=== PATIENT | male | born 1935 | race Caucasian/White ===

== ENCOUNTER 2017-06-01 09:07 | Outpatient (CLI) | payer MEDICARE, BC ==
[~2017-06-01] VITALS: Ht 185.4 cm; Wt 76.4 kg
--- NOTE | ~2017-06-01 | OP ---
PATIENT NAME: ANA BATRES MEDICAL RECORD: [id number] :33 LOCATION:D.CAT ADMISSION DATE: SURGEON: LAURA FLANAGAN MD DATE OF OPERATION: 06/01/2017 PROCEDURES: 1. PTCA stent left circumflex. 2. Intravascular ultrasound left circumflex. 3. Left heart catheterization. 4. Selective coronary angiography. 5. Vein graft angiography. 6. CAO angiography. 7. Left ventriculogram. INDICATION: Angina and coronary artery disease. PROCEDURE IN DETAIL: After informed consent was obtained and after detailed explanation of risks, benefits as well as alternative therapies, the patient elected to proceed with angiogram and angioplasty. The right femoral area was prepped and draped in normal sterile fashion. The right femoral artery was cannulated via modified Seldinger technique with placement of 6-Telugu sheath. All catheters exchanged through this sheath. FINDINGS: Left ventriculogram was performed in standard 30-degree DE LA FUENTE view reveals global hypokinesis throughout all segments. Overall ejection fraction is 30% to 35%. SELECTIVE CORONARY ANGIOGRAPHY: 1. Left main showed no significant angiographic disease. 2. Left anterior descending is totally occluded. 3. Left circumflex has a 73% stenosis in the mid vessel confirmed by intravascular ultrasound. 4. Right coronary has at least 80% stenosis in the mid vessel. 5. CAO to the LAD is widely patent. Distal LAD is diffusely diseased. 6. Vein graft to the circumflex is closed. 7. Vein graft to the right coronary is closed. PTCA STENT OF THE LEFT CIRCUMFLEX: The stent used was a 3.5 x 18 mm [place]. Result was 0% residual stenosis. OVERALL IMPRESSION: Successful percutaneous transluminal coronary angioplasty stent of the left circumflex going from 73% initial stenosis to 0% residual. PLAN: PTCA stent of the RCA in the near future. TRANSINT:[id number] Voice Confirmation ID: [id number] DOCUMENT ID: [id number] OPERATIVE REPORT [id number] MEDARDOANA HUNG LAURA DALE MD CC: [id number] DICTATION DATE: 06/01/17 1300 DRILL PRESS SET UP OPERATOR RADIAL: 06/01/17 1548 [facility] [address] [place] [address]
--- NOTE | ~2017-06-01 | HEMODYNAMI ---
PATIENT:Ursula BATRES MEDICAL RECORD: [id number] : 33 LOCATION:FUENTES ADMISSION DATE: 06/01/17 Generatedon:06/01/201712:59 Patient name: Ursula BATRES Patient #: [id number] SSN: : Date of study: 06/01/2017 Page: Of Hemodynamic Procedure Report Patient Data Patient Demographics Procedure consent was obtained First Name: Ursula Gender: Male Last Name: MEDARDO : 1935 [facility] Initial: ONEIL Age: 81 year(s) Patient #: [id number] Race: Unknown Additional ID: [id number] Contact details [address]: [address] [place] [address] State: [place] City: [place] Zip code: [address] Admission Admission Data Admission Date: 06/01/2017 Admission Time: 9:07 Lab Results Lab Result Date: 06/01/2017 Lab Result Time: 0:00 Biochemistry Name Units Result Min Max Creatinine mg/dl 1 --(--*-)-- 0.6 1.3 CBC Name Units Result Min Max Hemoglobin g/dl 14.1 --(*---)-- 13.5 17.5 Procedure Procedure Types Cath Procedure Diagnostic Procedure [facility] w/Coronaries FFR/IVUS Intra-Coronary IVUS Initial PCI Procedure Coronary Stent Initial Miscellaneous Procedures Moderate Sedation up to 30 minutes Procedure Description Procedure Date Procedure Date: 06/01/2017 Procedure Start Time: 12:38 Procedure End Time: 12:59 Procedure Staff Name Function Álvaro Ruby MD Performing Physician Otto Manning RT Scrub Trina Escoto RT Scrub Elle Velarde RN Nurse Estela Acosta RT Monitor Eddy Weaver RT Hydroelectric Plant Technician Procedure Data Cath Procedure Fluoroscopy Diagnostic fluoroscopy Total fluoroscopy Time: 7 time: 7 min min Diagnostic fluoroscopy Total fluoroscopy dose: 504 dose: 504 mGy mGy Contrast Material Contrast Material Type Amount (ml) Isovue 300 118 Entry Location Entry Primary Successful Side Size Upsize Upsize Entry Closure Succes sful Closure Location (Fr) 1 (Fr) 2 (Fr) Remarks Device Remarks Femoral Right 5 Fr 6 Fr Exoseal artery Short Estimated blood loss: 10 ml Diagnostic catheters Device Type Used For End Catheter Placement Cordis 5Fr Pigtail LV Angiography Catheter (MP) Cordis 5Fr JL 4.0 Left Coronary Catheter (MP) Angiography Diagnostic Infinity 5Fr Left Coronary JL 6 catheter Angiography Cordis 5Fr 3DRC Catheter Internal mammary (MP) arteriography Cordis 5Fr 3DRC Catheter Right Coronary (MP) Angiography Diagnostic Infinity 5Fr SVG Angiography AR 2 MOD catheter Procedure Complications No complications Procedure Medications Medication Administration Route Dosage Oxygen NC 2 l/min Lidocaine 2% added to field 20 Heparin Flush Bag added to field 2 bags (1000units/500ml NS) 0.9% NaCl I.V. 100 ml/hr Versed I.V. 1 mg Fentanyl I.V. 50 mcg Versed I.V. 1 mg Fentanyl I.V. 50 mcg Heparin Bolus I.V. 4000 units Integrilin (Bolus I.V. 6.8 ml 2mg/ml) Versed I.V. 0.5 mg Plavix P.O. 600 mg Hemodynamics Rest Heart Rate: 60 (bpm) Snapshots Pre Cath Intra NCS Post Cath Vital Signs Time Heart Resp SPO2 etCO2 WO3pvbp NIBP (mmHg) Rhythm Pain Sedation Rate (ipm) (%) (mmHg) (mmHg) Status Level (bpm) 12:30:53 67 15 100 0 0 157/77(127) NSR 0 (11) 10(A) , No pain 12:35:13 60 15 95 0 0 153/78(129) NSR 0 (11) 10(A) , No pain 12:40:14 60 14 98 0 0 153/79(123) NSR 0 (11) 10(A) , No pain 12:44:33 60 16 94 0 0 140/75(111) NSR 0 (11) 9(A) , No pain 12:48:46 60 15 94 0 0 148/73(118) NSR 0 (11) 9(A) , No pain 12:53:04 60 16 93 0 0 140/75(118) NSR 0 (11) 9(A) , No pain 12:57:18 60 14 99 0 0 153/75(125) NSR 0 (11) 10(A) , No pain Medications Time Medication Route Dose Verified Delivered Reason Notes Effectiveness by by 12:29:34 Oxygen NC 2 Álvaro Buffie used for l/min Flori Velarde RN procedure 12:30:08 Lidocaine 2% added 20ml Álvarorosie Rea for local to vial Flori Ruby MD anesthetic field 12:30:16 Heparin Flush added 2 Álvaro Álvaro used for Bag to bags Flori Ruby MD procedure (1000units/500ml field NS) 12:30:27 0.9% NaCl I.V. 100 Álvaro Buffie Per physician ml/hr Flori Velarde RN 12:38:00 Versed I.V. 1 mg Álvaro Almeida for sedation Flori Velarde RN 12:38:06 Fentanyl I.V. 50 Álvaro Buffie for sedation mcg Flori Velarde RN 12:41:25 Versed I.V. 1 mg Álvaro Almeida for sedation Flori Velarde RN 12:41:29 Fentanyl I.V. 50 Álvaro Almeida for sedation mcg Flori Velarde RN 12:47:26 Heparin Bolus I.V. 4000 Álvaro Clarkie for verifi ed units Flori Velarde RN anticoagulation with dr ruby 12:50:15 Integrilin I.V. 6.8 Álvaro Clarkie for wasted (Bolus 2mg/ml) ml Flori Velarde RN antiplatelet 3.2 ml therapy of vial 12:53:48 Versed I.V. 0.5 Álvaro Clarkie for sedation mg Flori Velarde RN 12:58:16 Plavix P.O. 600 Álvaro Almeida for mg Flori Velarde RN antiplatelet therapy Procedure Log Time Note 12:12:14 Eddy Weaver RT(R) sent for patient. Start room use. 12:12:15 Time tracking: Regular hours 12:12:19 Plan of Care:Hemodynamics will remain stable., Cardiac rhythm will remain stable., Comfort level will be maintained., Respiratory function will remain adequate., Patient/ family verbilizes understanding of procedure., Procedure tolerated without complication., Recovers from procedure without complications.. 12:14:34 Lab Result : Creatinine 1 mg/dl 12:14:34 Lab Result : Hemoglobin 14.1 g/dl 12:18:13 Patient received from Pre/Post Procedure Room to [facility] 1 Alert and oriented. Tansferred to table in Supine position. 12:18:14 Warm blankets applied, and ruby hugger turned on for patient comfort. 12:18:15 Correct patient and procedure confirmed by team. 12:18:16 Signed procedure consent form obtained from patient. 12:18:17 ECG and BP/O2 sat monitors applied to patient. 12:18:18 Full Disclosure recording started 12:29:34 Oxygen 2 l/min NC was administered by Elle Velarde RN; used for procedure; 12:29:35 Vital chart was started 12:30:08 Lidocaine 2% 20ml vial added to field was administered by Álvaro Ruby MD; for local anesthetic; 12:30:16 Heparin Flush Bag (1000units/500ml NS) 2 bags added to field was administered by Álvaro Ruby MD; used for procedure; 12:30:27 0.9% NaCl 100 ml/hr I.V. was administered by Elle Velarde RN; Per physician; 12:36:03 Baseline sample Acquired. 12:36:08 Rhythm: paced 12:36:17 H&P Date Dictated: 06/01/2017 Within 30 days and on chart., H&P Addendum completed by physician on day of procedure. (MUST COMPLETE FOR ALL OUTPATIENTS). 12:36:21 Pre-procedure instructions explained to patient. 12:36:21 Pre-op teaching completed and patient verbalized understanding. 12:36:23 Family in waiting room. 12:36:24 Patient NPO since Midnight. 12:36:29 Is the patient allergic to Iodine/contrast media? No. 12:36:30 Was the patient premedicated? No 12:36:35 Is patient on blood thinner?No 12:36:36 Patient diabetic? No. 12:36:39 Previous problem with sedation/anesthesia? No ? 12:36:41 Snore? Yes 12:36:43 Sleep apnea? No 12:36:44 Deviated septum? No 12:36:44 Opens mouth fully? Yes 12:36:45 Sticks out tongue? Yes 12:36:47 Airway obstruction? No ? 12:36:49 Dentures? No ? 12:36:53 Pre procedure: right dorsailis pedis pulse 1+ Palpable, but thready & weak; easily obliterated 12:36:56 Pre procedure: left dorsailis pedis pulse 1+ Palpable, but thready & weak; easily obliterated 12:37:01 Patient pain scale 0/10 ?. 12:37:06 IV patent on arrival in left forearm with 0.9% NaCl at [facility]. 12:37:09 Lab results completed and on chart. 12:37:18 Zero performed for pressure channel P1 12:37:29 Right groin area was prepped with chlora-prep and draped in sterile fashion 12:37:30 Alarms reviewed by R. N. 12:37:31 Sharps counted by scrub and verified by R.N. 12:37:34 Final Timeout: patient, procedure, and site verified with staff and physician. All members of the team are in agreement. 12:37:36 Right groin site verified by team. 12:37:42 Physical assessment completed. ASA score P 2 - A patient with mild systemic disease as per Álvaro Ruby MD. 12:37:46 Sedation plan: IV Moderate Sedation Versed, Fentanyl 12:37:51 Use device set Femoral Dx 12:37:52 Acist Syringe opened to sterile field. 12:37:54 Bag Decanter opened to sterile field. 12:37:54 Medline Cath Pack opened to sterile field. 12:37:55 Terumo 5Fr [place] Sheath opened to sterile field. 12:37:55 St Christiano 260cm J .035 wire opened to sterile field. 12:37:56 Acist Hand Control opened to sterile field. 12:37:57 Acist Manifold opened to sterile field. 12:37:57 Diagnostic Infinity 5Fr Multipack catheter opened to sterile field. 12:37:58 Tegaderm 4 x 4 opened to sterile field. 12:38:00 Versed 1 mg I.V. was administered by Elle Veladre RN; for sedation; 12:38:06 Fentanyl 50 mcg I.V. was administered by Elle Velarde RN; for sedation; 12:38:07 Procedure started. 12:38:11 Local anesthetic to right femoral artery with Lidocaine 2% by Álvaro Ruby MD.INITIAL ACCESS ONLY 12:38:19 A 5 Fr sheath was inserted into the Right Femoral artery 12:38:42 A Cordis 5Fr Pigtail Catheter (MP) was advanced over the wire and used for LV Angiography. 12:39:03 LV gram done using DE LA FUENTE 12:39:07 EF : 30 % 12:39:12 Injector settings: Ml/sec: 10, Volume: 20, 12:39:14 Catheter removed. 12:40:36 A Cordis 5Fr JL 4.0 Catheter (MP) was advanced over the wire and used for Left Coronary Angiography.removed, unable to cannulate. 12:40:57 A Diagnostic Infinity 5Fr JL 6 catheter was advanced over the wire and used for Left Coronary Angiography. 12:41:25 Versed 1 mg I.V. was administered by Elle Velarde RN; for sedation; 12:41:28 Catheter removed. 12:41:29 Fentanyl 50 mcg I.V. was administered by Elle Velarde RN; for sedation; 12:41:45 Terumo 6Fr [place] Sheath opened to sterile field. 12:41:46 Nicholas [place] Storkwitzisper J 300cm 0.014 guide wire opened to sterile field. 12:41:46 [employer] BasixCompak Inflation Kit opened to sterile field. 12:42:44 A Cordis 5Fr 3DRC Catheter (MP) was advanced over the wire and used for Internal mammary arteriography.TO LAD 12:43:49 A Cordis 5Fr 3DRC Catheter (MP) was advanced over the wire and used for Right Coronary Angiography. 12:43:56 Catheter removed. 12:46:03 A Diagnostic Infinity 5Fr AR 2 MOD catheter was advanced over the wire and used for SVG Angiography. 12:46:04 Catheter removed. 12:46:15 [place] Sci Mach 1 6Fr Q 5.0 guide catheter opened to sterile field. 12:47:02 [place] Minto Eagleye IVUS Catheter opened to sterile field. 12:47:23 Sheath upsized to a 6 Fr Short. 12:47:26 Heparin Bolus 4000 units I.V. was administered by Elle Velarde RN; for anticoagulation; verified with dr ruby 12:47:29 6 Fr Q5 guide catheter was inserted over the wire 12:47:48 Whisper wire advanced. 12:47:58 IVUS catheter advanced over wire. 12:50:08 IVUS pass to LAD lesion performed. 12:50:15 Integrilin (Bolus 2mg/ml) 6.8 ml I.V. was administered by Elle Velarde RN; for antiplatelet therapy; wasted 3.2 ml of vial 12:50:18 IVUS catheter removed over wire. 12:53:17 Inflation Number: 1 A [place] OTW 3.5 x 18 stent was prepped and advanced across the Mid CX. The stent was deployed at 13 DARLENE for 0:07 (min:sec). 12:53:33 Stent catheter was removed intact over wire. 12:53:33 Wire removed. 12:53:34 Guide catheter removed. 12:53:44 Cordis 6Fr Exoseal opened to sterile field. 12:53:48 Versed 0.5 mg I.V. was administered by Elle Velarde RN; for sedation; 12:53:52 Sheath removed intact; hemostasis achieved with Exoseal to the Right Femoral artery. 12:53:54 Procedure ended.(Physican Out) 12:54:36 Fluoroscopy time 07.00 minutes. 12:54:45 Fluoroscopy dose: 504 mGy 12:54:45 Flurop Dose total: 504 12:55:17 Contrast amount:Isovue 300 118ml. 12:55:18 Sharps counted by scrub and verified by R.N. 12:55:19 Insertion/operative site no bleeding no hematoma. 12:55:22 Post-op/insertion site Right Femoral artery dressed using a 4 x 4 and Tegaderm. 12:55:26 Post right femoral artery:stable, clean and dry 12:55:27 Post Procedure Pulses reassessed and unchanged 12:55:29 Post-procedure physical assessment completed. ASA score P 2 - A patient with mild systemic disease as per Álvaro Ruby MD. 12:55:31 Post procedure rhythm: unchanged. 12:55:34 Estimated blood loss: 10 ml 12:55:35 Post procedure instruction explained to patient.Patient verbalizes understanding. 12:55:36 Patient needs reinforcement of post procedure teaching. 12:55:52 Procedure type changed to Cath procedure, Diagnostic procedure, LHC, LHC w/Coronaries, FFR/IVUS, Intra-Coronary IVUS Initial, PCI procedure, Coronary Stent Initial, Miscellaneous Procedures, Moderate Sedation up to 30 minutes 12:55:57 Procedure Complication : No complications 12:55:59 See physician's report for complete and final results. 12:57:04 Procedure and supply charges have been captured, reviewed, submitted and are correct. 12:58:16 Plavix 600 mg P.O. was administered by Elle Velarde RN; for antiplatelet therapy; 12:58:51 Vital chart was stopped 12:58:55 Report given to Pre/Post Procedure Room. 12:58:58 Patient transfered to Pre/Post Procedure Room with Stretcher. 12:59:08 Procedure ended. 12:59:08 Full Disclosure recording stopped 12:59:11 End room use (Document Last) Intervention Summary Intervention Notes Time ActionType Lesion and Equipment Action# Pressure Duration Attributes Used 12:53:17 Place stent Mid CX [place] OTW 1 13 00:07 3.5 x 18 stent Device Usage Item Name Manufacture Quantity Catalog Number Hospital Part Current Mini mal Lot# / Charge Number Stock Stock Serial# Code Acist Acist 1 93847 947331 203886 139373 20 Syringe Medical Systems Inc Bag Microtek 1 2002S 408090 46344 970131 5 TRAFI. Medline Cardinal 1 [id number] 415645 28179 308381 5 Cath Pack Health Terumo 5Fr Terumo 1 TCL761 064065 248140 151913 [address] Christiano 1 923906 695850 701506 946439 30 260cm J .035 wire Acist Hand Acist 1 42101 767649 375210 504779 5 Control Medical Systems Inc Acist Acist 1 17057 533195 895272 160281 5 Social & Beyond Medical Systems Inc Diagnostic Cardinal 1 IX2125 400391 63492 632454 30 Infinity Health 5Fr Multipack catheter Tegaderm 4 3M 1 1626W 284338 320478 896578 5 x 4 Cordis 5Fr Cardinal 1 763233 5 Pigtail Health Catheter (MP) Cordis 5Fr Cardinal 1 971528 5 JL 4.0 Health Catheter (MP) Diagnostic Cardinal 1 201178Y 581338 104663 452741 5 Infinity Health 5Fr JL 6 catheter Terumo 6Fr Terumo 1 MTL442 699414 208989 563311 40 [place] Sheath Nicholas Nicholas 1 [id number] 506739 738132 492550 5 Whisper J Vascular 300cm 0.014 guide wire Merit Merit 1 AT5127 750363 631174 433028 15 Hangfeng [employer] Medical Inflation Kit Cordis 5Fr Cardinal 1 007611 5 3DRC Health Catheter (MP) Diagnostic Cardinal 1 206134Y 490574 792417 263718 20 Infinity Health 5Fr AR 2 MOD catheter [place] Sci [place] 1 [id number] 575805 401940 367560 0 Mach 1 6Fr Scientific Q 5.0 guide catheter [place] 1 08674H 073522 982713 650918 8 Minto Eagleye IVUS Catheter Tate OTW Medtronic 1 [id number] 827231 9798483 494886 5 [id number] 3.5 x 18 stent Cordis 6Fr Cardinal 1 EX600 907574 263183 503011 10 [facility] Health Signature Audit Howard Stage Time Signature Unsigned Intra-Procedure 06/01/2017 Estela 12:59:34 PM Counts RT(R) Signatures Monitor : Estela Signature : Counts RT Date : Time : [address] [place] [address]
[2017-06-01] MEDS ORDERED: CRESTOR20 MG PO (09:31)
[2017-06-01] MEDS ORDERED: ZYLOPRIM100 MG PO (09:32)
[2017-06-01] MEDS ORDERED: BETAPACE 80 MG80 MG PO (09:32)
[2017-06-01] MEDS ORDERED: BAYER CHEWABLE81 MG PO (09:32)
[2017-06-01 09:41] VITALS: BP 150/76; Ht 185.4 cm; Wt 76.4 kg
[2017-06-01 10:07] LABS: BASOPHILS 0.3 % (0-2); EOSINOPHILS 1.4 % (0-7); HEMATOCRIT 43.5 % (42.0-54.0); HEMOGLOBIN 14.1 g/dL (13.5-17.5); IMMATURE GRANULOCYTES 0.2 % (0-5); LYMPHOCYTES 23.4 % (15-50); MCHC 32.4 g/dL (31.0-37.0); MCV 98.9 fL (80.0-100.0); MEAN PLATELET VOLUME 9.7 fL (7.4-10.4); MONOCYTES 8.5 % (2-11); NEUTROPHILS 66.2 % (40-80); PLATELET COUNT 185 10x3/uL (130-400); RDW 15.2 % (11.5-14.5); WBC 6.3 10x3/uL (4.8-10.8)
[2017-06-01 10:17] LABS: CALC OSMOLALITY 284 mosm/kg (275-300); CALCIUM 8.5 mg/dL (8.5-10.1); CARBON DIOXIDE 29.1 mmol/L (21.0-32.0); CHLORIDE - SERUM 107 mmol/L (98-107); GLUCOSE 92 mg/dL (74-106); POTASSIUM - SERUM 4.2 mmol/L (3.5-5.1); SODIUM 142 mmol/L (136-145); UREA NITROGEN 18 mg/dL (7-18); eGFR NON AFRICAN AMERICAN 76 mL/min (90-120)
[2017-06-01] MEDS ORDERED: PLAVIX75 MG PO (13:29)
--- NOTE | 2017-06-01 13:34 | NUR ---
RIGHT GROIN CDI, NO HEMATOMA OR BLEEDING AT SITE, SOFT TO TOUCH, FAMILY AT SIDE
--- NOTE | 2017-06-01 14:00 | NUR ---
RESTING QUIETLY, RIGHT GROIN CDI, NO HEMATOMA OR BLEEDING AT SITE, SOFT TO TOUCH, AT SIDE
--- NOTE | 2017-06-01 17:00 | NUR ---
IV D'C WITH CATH TIP INTACT, WRITTEN AND VERBAL D'C INSTRUCTIONS GIVEN TO PT AND - VERBAL UNDERSTANDING NOTED. WILL RETURN ON FOR NEXT PROCEDURE. DENIES PAIN OR FURTHUR NEEDS. D'C HOME WITH
--- NOTE | 2017-06-01 17:01 | NUR ---
PLAVIX RX CALLED INTO [facility] BY TAYA-#90 WITH 3 REFILLS- SPOKE TO SULY-
== END 2017-06-01 17:05 | disposition home or self-care (01) ==
LOC: D.CATH 09:07
PROVIDERS: Internal Medicine Interventional Cardiology
DX: I25.10 Atherosclerotic heart disease of native coronary artery without angina pectoris (principal); I48.0 Paroxysmal atrial fibrillation; E78.5 Hyperlipidemia, unspecified; I49.5 Sick sinus syndrome; R06.02 Shortness of breath; Z95.0 Presence of cardiac pacemaker; Z01.812 Encounter for preprocedural laboratory examination
CPT/HCPCS: 93459; 92978; C9600

== ENCOUNTER 2017-06-05 08:59 | Outpatient (CLI) | payer MEDICARE, BC ==
[~2017-06-05] VITALS: Ht 185.4 cm; Wt 76.4 kg
--- NOTE | ~2017-06-05 | OP ---
PATIENT NAME: Ursula BATRES MEDICAL RECORD: [id number] :33 LOCATION:D.CAT ADMISSION DATE: SURGEON: LAURA FLANAGAN MD DATE OF OPERATION: 06/05/2017 PROCEDURES: 1. PTCA stent RCA. 2. Selective coronary angiography. INDICATION: Angina and coronary artery disease. PROCEDURE IN DETAIL: After informed consent was obtained and after detailed explanation of risks, benefits as well as alternative therapies, the patient elected to proceed with angiogram and angioplasty. The right femoral area was prepped and draped in normal sterile fashion. The right femoral artery was cannulated via modified Seldinger technique with placement of 6-Ukrainian sheath. All catheters exchanged through this sheath. FINDINGS: The right coronary artery has an area of 70-80% stenosis in the mid vessel. This was addressed with a 2.5 x 26 mm Resolute [place]. Result was 0% residual stenosis. OVERALL IMPRESSION: Successful percutaneous transluminal coronary angioplasty stent of the right coronary artery going from 80% initial stenosis to 0% residual stenosis. TRANSINT:[id number] Voice Confirmation ID: [id number] DOCUMENT ID: [id number] LAURA FLANAGAN MD CC: [id number] DICTATION DATE: 06/05/17 1119 EARRING MAKER: 06/05/17 1132 [facility] [address] [place] [address]
--- NOTE | ~2017-06-05 | HEMODYNAMI ---
PATIENT:Ursula BATRES MEDICAL RECORD: [id number] : 33 LOCATION:[facility] ADMISSION DATE: 06/05/17 Generatedon:06/05/201711:24 Patient name: Ursula BATRES Patient #: [id number] SSN: : Date of study: 06/05/2017 Page: Of Hemodynamic Procedure Report Patient Data Patient Demographics Procedure consent was obtained First Name: Ursula Gender: Male Last Name: MEDARDO : 1935 [facility] Initial: ONEIL Age: 81 year(s) Patient #: [id number] Race: Unknown Additional ID: [id number] Contact details [address]: [address] [place] [address] State: [place] City: [place] Zip code: [address] Admission Admission Data Admission Date: 06/05/2017 Admission Time: 8:59 Lab Results Lab Result Date: 06/01/2017 Lab Result Time: 0:00 Biochemistry Name Units Result Min Max Creatinine mg/dl 1 --(--*-)-- 0.6 1.3 CBC Name Units Result Min Max Hemoglobin g/dl 14.1 --(*---)-- 13.5 17.5 Procedure Procedure Types Cath Procedure Diagnostic Procedure [facility] PCI Procedure Coronary Stent Initial Miscellaneous Procedures Moderate Sedation up to 15 minutes Procedure Description Procedure Date Procedure Date: 06/05/2017 Procedure Start Time: 11:08 Procedure Staff Name Function Álvaro Ruby MD Performing Physician Carmen Graham RT Scrub Elle Velarde RN Nurse Osbaldo Zhu RT Monitor Procedure Data Cath Procedure Fluoroscopy Diagnostic fluoroscopy Total fluoroscopy Time: 2.5 time: 2.5 min min Diagnostic fluoroscopy Total fluoroscopy dose: dose: 73.19 mGy 73.19 mGy Contrast Material Contrast Material Type Amount (ml) Isovue 300 37 Entry Location Entry Primary Successful Side Size Upsize Upsize Entry Closure Succes sful Closure Location (Fr) 1 (Fr) 2 (Fr) Remarks Device Remarks Femoral Right 6 Fr Exoseal artery Short Procedure Medications Medication Administration Route Dosage Oxygen NC 2 l/min Lidocaine 2% added to field 20 Heparin Flush Bag added to field 2 bags (1000units/500ml NS) 0.9% NaCl I.V. 100 ml/hr Versed I.V. 1 mg Fentanyl I.V. 50 mcg Heparin Bolus I.V. 4000 units Versed I.V. 1 mg Fentanyl I.V. 50 mcg Hemodynamics Rest HGB: 14.1 (g/dl) Heart Rate: 62 (bpm) Snapshots Pre Cath Intra NCS Post Cath Vital Signs Time Heart Resp SPO2 NIBP (mmHg) Rhythm Pain Sedation Rate (ipm) (%) Status Level (bpm) 10:59:09 61 18 100 149/76(119) NSR 0 (11) 10(A) , No pain 11:03:34 60 13 97 147/77(116) NSR 0 (11) 10(A) , No pain 11:07:54 60 18 94 145/78(119) NSR 0 (11) 10(A) , No pain 11:12:16 60 26 94 135/76(111) NSR 0 (11) 9(A) , No pain 11:16:34 60 13 94 129/68(100) NSR 0 (11) 9(A) , No pain 11:20:50 60 17 93 129/73(108) NSR 0 (11) 10(A) , No pain Medications Time Medication Route Dose Verified Delivered Reason Not es Effectiveness by by 11:02:01 Oxygen NC 2 l/min Álvaro Almeida used for Flori Velarde RN procedure 11:02:07 Lidocaine 2% added 20ml Álvaro Álvaro for local to vial Flori Ruby MD anesthetic field 11:02:56 Heparin Flush added 2 bags Álvaro Álvaro used for Bag to Flori Ruby MD procedure (1000units/500ml field NS) 11:03:16 0.9% NaCl I.V. 100ml/hr Álvaro Almeida Per physician Flori Velarde RN 11:07:40 Versed I.V. 1 mg Álvaro Almeida for sedation Flori Velarde RN 11:07:47 Fentanyl I.V. 50 mcg Álvaro Almeida for sedation Flori Velarde RN 11:13:42 Heparin Bolus I.V. 4000 Álvaro Almeida for devang ified units Flori Velarde RN anticoagulation with dr ruby 11:16:36 Versed I.V. 1 mg Álvaro Almeida for sedation Flori Velarde RN 11:16:40 Fentanyl I.V. 50 mcg Álvaro Almeida for sedation Flori Velarde RN Procedure Log Time Note 10:50:20 Carmen Graham RT(R) sent for patient. Start room use. 10:50:35 Time tracking: Regular hours 10:50:41 Plan of Care:Hemodynamics will remain stable., Cardiac rhythm will remain stable., Comfort level will be maintained., Respiratory function will remain adequate., Patient/ family verbilizes understanding of procedure., Procedure tolerated without complication., Recovers from procedure without complications.. 10:50:49 Patient received from Pre/Post Procedure Room to CCL 3 Alert and oriented. Tansferred to table in Supine position. 10:50:51 Correct patient and procedure confirmed by team. 10:50:53 Signed procedure consent form obtained from patient. 10:50:54 ECG and BP/O2 sat monitors applied to patient. 10:50:56 Full Disclosure recording started 10:50:56 - 10:51:05 H&P Date Dictated: 06/05/2017 Within 30 days and on chart., H&P Addendum completed by physician on day of procedure. (MUST COMPLETE FOR ALL OUTPATIENTS). 10:51:06 Pre-procedure instructions explained to patient. 10:51:07 Pre-op teaching completed and patient verbalized understanding. 10:51:08 Family in waiting room. 10:51:10 Patient NPO since Midnight. 10:51:15 Is the patient allergic to Iodine/contrast media? No. 10:57:54 Vital chart was started 10:57:55 Baseline sample Acquired. 10:57:59 Rhythm: sinus rhythm 10:58:09 ACC The patient was administered the following blood thiners within the last 24 hours: ACCAspirin, ACCPlavix 10:58:11 Patient diabetic? No. 10:58:12 - 10:58:12 ----Pre-sedation anethsthesia assessment.---- 10:58:15 Previous problem with sedation/anesthesia? No ? 10:58:15 Snore? Yes 10:58:17 Sleep apnea? Yes 10:58:18 Deviated septum? No 10:58:20 Opens mouth fully? Yes 10:58:21 Sticks out tongue? Yes 10:58:24 Airway obstruction? No ? 10:58:27 Dentures? No ? 10:58:31 Pre procedure: right dorsailis pedis pulse Doppler 10:58:36 Patient pain scale 0/10 no pain. 10:58:53 IV patent on arrival in right forearm with 0.9% NaCl at [facility]. 10:58:54 Sharps counted by scrub and verified by R.N. 10:58:54 Alarms reviewed by R. N. 10:58:59 Right groin area was prepped with chlora-prep and draped in sterile fashion 10:59:03 Use device set Femoral PCI 10:59:05 Acist Syringe opened to sterile field. 10:59:05 Acist Hand Control opened to sterile field. 10:59:06 Bag Decanter opened to sterile field. 10:59:06 Medline Cath Pack opened to sterile field. 10:59:06 Terumo 6Fr [place] Sheath opened to sterile field. 10:59:07 St Christiano 260cm J .035 wire opened to sterile field. 10:59:07 Merit BasixCompak Inflation Kit opened to sterile field. 10:59:08 Acist Manifold opened to sterile field. 10:59:08 Tegaderm 4 x 4 opened to sterile field. 10:59:42 Procedure type changed to Cath procedure, Diagnostic procedure, LHC, PC I procedure, Coronary Stent Initial, Miscellaneous Procedures, Moderate Sedation up to 15 minutes 11:02:01 Oxygen 2 l/min NC was administered by Elle Velarde RN; used for procedure; 11:02:07 Lidocaine 2% 20ml vial added to field was administered by Álvaro Ruby MD; for local anesthetic; 11::56 Heparin Flush Bag (1000units/500ml NS) 2 bags added to field was administered by Álvaro Ruby MD; used for procedure; ::16 0.9% NaCl 100ml/hr I.V. was administered by Elle Velarde RN; Per physician; 11::44 Physician arrived 11::45 --------ALL STOP TIME OUT------ 11::46 Final Timeout: patient, procedure, and site verified with staff and physician. All members of the team are in agreement. 11::48 Right groin site verified by team. 11::57 Physical assessment completed. ASA score P 2 - A patient with mild systemic disease as per Álvaro Ruby MD. 11:07:40 Versed 1 mg I.V. was administered by Elle Velarde RN; for sedation; ::47 Fentanyl 50 mcg I.V. was administered by Elle Velarde RN; for sedation; :08:16 Sedation plan: IV Moderate Sedation Versed, Fentanyl 11::46 Procedure started. 11:08:51 Local anesthetic to right femoral artery with Lidocaine 1% by Álvaro Ruby MD.INITIAL ACCESS ONLY 11:09:03 A 6 Fr Short sheath was inserted into the Right Femoral artery 11:09:07 Zero performed for pressure channel P1 11:13:42 Heparin Bolus 4000 units I.V. was administered by Elle Velarde RN; for anticoagulation; verified with dr ruby 11:14:06 Medtronic Launcher 6Fr HS I SH guide catheter opened to sterile field. 11:14:18 6 Fr hs 1 sh guide catheter was inserted over the wire 11:14:26 whisper wire advanced. 11:16:36 Versed 1 mg I.V. was administered by Elle Velarde RN; for sedation; 16:40 Fentanyl 50 mcg I.V. was administered by Elle Velarde RN; for sedation; ::48 Inflation Number: 1 A [place] OTW 2.5 x 26 stent was prepped and advanced across the Dist RCA. The stent was deployed at 15 DARLENE for 0:18 (min:sec). 11:17:25 Sheath removed intact; hemostasis achieved with Exoseal to the Right Femoral artery. 11:17:30 Procedure ended.(Physican Out) 11:18:05 Fluoroscopy time 02.50 minutes. 11:18:13 Flurop Dose total: 73.19 11:18:13 Fluoroscopy dose: 73.19 mGy 11:18:18 Contrast amount:Isovue 300 37ml. 11:18:19 Sharps counted by scrub and verified by R.N. 11:18:21 Insertion/operative site no bleeding no hematoma. 11:18:25 Post-op/insertion site Right Femoral artery dressed using a 4 x 4 and Tegaderm. 11:18:31 Post right femoral artery:stable 11:18:54 Post Procedure Pulses reassessed and unchanged 11:18:57 Post-procedure physical assessment completed. ASA score P 2 - A patient with mild systemic disease as per Álvaro Ruby MD. 11:19:01 Post procedure rhythm: unchanged. 11:19:02 Procedure and supply charges have been captured, reviewed, submitted an d are correct. 11:19:04 Post procedure instruction explained to patient.Patient verbalizes understanding. 11:23:59 Report given to Pre/Post Procedure Room. 11:24:11 Patient transfered to Pre/Post Procedure Room with Stretcher. 11:24:46 Vital chart was stopped Intervention Summary Intervention Notes Time ActionType Lesion and Equipment Action# Pressure Duration Attributes Used 11:16:48 Place stent Dist RCA Tate OTW 1 15 00:18 2.5 x 26 stent Device Usage Item Name Manufacture Quantity Catalog Hospital Part Current Minimal Lot# / Number Charge Number Stock Stock Serial# Code Acist Acist 1 [id number] [id number] 609037 237577 20 Syringe Medical Systems Inc Acist Hand Acist 1 92193 589948 733493 503070 5 Control Medical Systems Inc Bag Microtek 1 2001S 505992 09600 396995 5 Pharma[employer] Inc. Medline Cardinal 1 [id number] 392926 78215 287306 5 Cath MedVentive Terumo 6Fr Terumo 1 PCF253 604751 308196 476031 [address] Christiano 1 375139 552062 694435 309303 30 260cm J .035 wire Merit Merit 1 [id number] 051669 971084 872094 15 Viraliti Medical Inflation Kit Acist Acist 1 98733 410963 740707 221226 5 FrontalRain Technologies Systems Inc Tegaderm 4 3M 1 1626W 665798 075432 759508 5 x 4 Medtronic Medtronic 1 [id number] 194589 74638 870867 1 Launcher 6Fr HS I SH guide catheter Tate OTW Medtronic 1 [id number] 823889 65065 910425 5 [id number] 2.5 x 26 stent Signature Audit [place] Stage Time Signature Unsigned Intra-Procedure 06/05/2017 Osbaldo 11:24:43 AM Marko RT (R) (CV) Signatures Monitor : Osbaldo Signature : Marko RT Date : Time : [address] [id number]
[~2017-06-05 08:59] MED LIST: BAYER CHEWABLE81 MG PO; BETAPACE 80 MG80 MG PO; CRESTOR20 MG PO; PLAVIX75 MG PO; ZYLOPRIM100 MG PO
[2017-06-05 09:16] VITALS: BP 148/85; Ht 185.4 cm; Wt 76.4 kg
[2017-06-05 09:29] LABS: BASOPHILS 0.3 % (0-2); HEMATOCRIT 45.1 % (42.0-54.0); HEMOGLOBIN 14.7 g/dL (13.5-17.5); IMMATURE GRANULOCYTES 0.3 % (0-5); LYMPHOCYTES 21.6 % (15-50); MCHC 32.6 g/dL (31.0-37.0); MCV 98.3 fL (80.0-100.0); MEAN PLATELET VOLUME 9.5 fL (7.4-10.4); MONOCYTES 9.6 % (2-11); NEUTROPHILS 66.2 % (40-80); PLATELET COUNT 207 10x3/uL (130-400); RBC 4.59 10x6/uL (4.20-6.10); RDW 15.1 % (11.5-14.5)
[2017-06-05 09:46] LABS: CALC OSMOLALITY 285 mosm/kg (275-300); CALCIUM 8.8 mg/dL (8.5-10.1); CARBON DIOXIDE 30.5 mmol/L (21.0-32.0); CHLORIDE - SERUM 108 mmol/L (98-107); GLUCOSE 98 mg/dL (74-106); POTASSIUM - SERUM 4.8 mmol/L (3.5-5.1); SODIUM 142 mmol/L (136-145); UREA NITROGEN 22 mg/dL (7-18); eGFR NON AFRICAN AMERICAN 76 mL/min (90-120)
--- NOTE | 2017-06-05 11:40 | NUR ---
1140 RECIEVED TO ROOM VIA STRETCHER FROM SCRAP BREAKER WITH FEMSTOP TO R/GROIN CDI NO BLEEDING NO HEMATOMA NOTED. VSS WITH CHEST PAIN DENIED
--- NOTE | 2017-06-05 12:00 | NUR ---
1200 VSS WITH NO DISTRESS AT THIS TIME PATIENT SLEEPING QUIETLY FEMSTOP IN PLACE
--- NOTE | 2017-06-05 12:12 | NUR ---
RESTING QUIETLY WITH VSS NO DISTRESS NOTED FEMSTOP REMAINS TO R/GROIN CDI
--- NOTE | 2017-06-05 12:41 | NUR ---
FEMSTOP PRESSURE AT 136 RELEASED TO 99.
--- NOTE | 2017-06-05 13:09 | NUR ---
FEMSTOP RELEASED WITH NO BLEEDING NO HEMATOMA AT SITE. VSS WITH CHEST PAIN DENIED. PULSES PRESENT AND MARKED
--- NOTE | 2017-06-05 13:57 | NUR ---
6 FR EXOSEAL R/GROIN CDI NO BLEEDING NO HEMATOMA NOTED. VSS WITH CHEST PAIN DENIED FAMILY AT SIDE
--- NOTE | 2017-06-05 14:30 | NUR ---
VSS WITH NO CHANGE IN ASSESSMENT CHEST PAIN DENIED
--- NOTE | 2017-06-05 14:48 | NUR ---
REPOSITIONED TO SITTING WITH HOB UP 30 DEGREES. 6 FR EXOSEAL R/GROIN CDI NO BLEEDING NO HEMATOMA NOTED. CHEST PAIN IS DENIED
--- NOTE | 2017-06-05 15:02 | NUR ---
PIV REMOVED WITH DRESSING APPLIED. 6 FR EXOSEAL CDI NO BLEEDING NO HEMATOMA NOTED. CHEST PAIN IS DENIED PATIENT UP TO GET DRESSED FOR DISCHARGE HOME
--- NOTE | 2017-06-05 15:23 | NUR ---
VERBAL AND WRITTEN DISCHARGE GONE OVER WITH PATIENT AND BOTH VERBALIZED UNDERSTANDING. R/GROIN CDI WITH CHEST PAIN DENIED NO DISTRESS. LEFT VIA WC TO PARKING FOR TRANSPORT HOME
== END 2017-06-05 15:25 ==
LOC: D.CATH 08:59
PROVIDERS: Internal Medicine Interventional Cardiology
DX: I25.10 Atherosclerotic heart disease of native coronary artery without angina pectoris (principal); I49.5 Sick sinus syndrome; I48.0 Paroxysmal atrial fibrillation; R06.02 Shortness of breath; Z95.0 Presence of cardiac pacemaker; Z01.812 Encounter for preprocedural laboratory examination

== ENCOUNTER 2017-10-15 05:35 | Day surgery (SDC) | payer MEDICARE, BC ==
[~2017-10-15] VITALS: Ht 185.4 cm; Wt 73.9 kg
--- NOTE | ~2017-10-15 | OP ---
PATIENT NAME: ANA BATRES MEDICAL RECORD: [id number] :33 LOCATION:[facility] ADMISSION DATE: SURGEON: MIGUEL BATRES MD DATE OF OPERATION: 10/15/2017 SURGEON: Miguel Batres MD PREOPERATIVE DIAGNOSIS: Left inguinal hernia. POSTOPERATIVE DIAGNOSIS: Left inguinal hernia. PROCEDURE PERFORMED: Left inguinal hernia repair with ProGrip mesh. ANESTHESIA: General. COMPLICATIONS: None. SPECIMENS: None. Case was clean. DESCRIPTION OF PROCEDURE: After consent was obtained, the patient was taken to the operating room and placed in the supine position on the operating table. Next, general anesthesia was given via endotracheal intubation after a timeout was taken to confirm the correct patient and procedure. The left inguinal region was prepped and draped in typical sterile fashion. An ilioinguinal nerve block was performed using 2 fingerbreadths medial and one fingerbreadth inferior to the ASIS. External landmarks were identified. An additional 10 cc of local anesthetic were injected at the skin incision site. The skin was incised using a 15 blade scalpel. Dissection continued to the subcutaneous tissue at the level of the external oblique fascia using electrocautery. Self-retaining retractor was placed and additional 10 cc of local anesthetic were injected below the external oblique fascia. The external oblique fascia was incised with a 15-blade scalpel. Using Metzenbaum scissors, the external oblique fascia was opened medially opening the external ring and it was opened. The incision was then extended laterally towards the ASIS. At this time, the spermatic cord was dissected off the pubic tubercle. A Bogart dressing was placed. There was a large direct hernia defect. At this time, the conjoined tendon was then sutured using 0 Vicryl suture to the inguinal ligament in interrupted fashion closing the direct space. There was no indirect component to the hernia. The internal ring was loosely reapproximated. Next, a Dillan repair was done. A ProGrip mesh was placed. It was secured to the pubic tubercle medially using 2-0 Prolene suture, it was secured along the inguinal ligament using interrupted 2-0 Prolene suture, it was then secured superiorly to the conjoined tendon using 2-0 Prolene suture again loosely reapproximating the internal ring. The external oblique fascia was then closed loosely recreating the external ring using 2-0 Vicryl suture. The subcutaneous tissue was closed with 3-0 Vicryl suture. The skin was closed with 4-0 Monocryl, Mastisol, and Steri-Strips. At the end of the case, all needle and sponge counts were correct. No complications occurred. The patient was extubated and transferred to the PACU in stable condition. TRANSINT:[id number] Voice Confirmation ID: [id number] DOCUMENT ID: [id number] OPERATIVE REPORT [id number] ANA BATRES JAMES J MD at 2035 CC: [id number] DICTATION DATE: 10/15/17 1148 WORKFLOW DEVELOPER: 10/15/17 1500 [facility] 10/15/17 [place] [address] [place] [address]
[2017-10-15 06:18] LABS: BASOPHILS 0.1 % (0-2); EOSINOPHILS 1.9 % (0-7); HEMATOCRIT 45.1 % (42.0-54.0); HEMOGLOBIN 14.2 g/dL (13.5-17.5); IMMATURE GRANULOCYTES 0.4 % (0-5); LYMPHOCYTES 20.7 % (15-50); MCH 31.8 pg (26.0-34.0); MCHC 31.5 g/dL (31.0-37.0); MCV 101.1 fL (80.0-100.0); MEAN PLATELET VOLUME 9.5 fL (7.4-10.4); MONOCYTES 8.9 % (2-11); PLATELET COUNT 221 10x3/uL (130-400); RBC 4.46 10x6/uL (4.20-6.10); RDW 14.9 % (11.5-14.5); WBC 7.2 10x3/uL (4.8-10.8)
[2017-10-15 06:28] LABS: ANION GAP 10.5 mmol/L (8-16); CALCIUM 9.3 mg/dL (8.5-10.1); CARBON DIOXIDE 29.5 mmol/L (21.0-32.0); CREATININE - SERUM 1.1 mg/dL (0.6-1.3)
[2017-10-15 06:55] VITALS: BP 119/76; Ht 185.4 cm; Wt 73.9 kg
[2017-10-15] MEDS ORDERED: HYDROCODON-ACE1 EAC7 PO (11:36)
[2017-10-15] MEDS ORDERED: FLOMAX0.4 MG PO (11:41)
== END 2017-10-15 16:00 | disposition home or self-care (01) ==
LOC: D.OPS 05:35 → D.PAN 08:00 → D.OPS 08:00
PROVIDERS: Anesthesiology
DX: K40.90 Unilateral inguinal hernia, without obstruction or gangrene, not specified as recurrent (principal); F17.200 Nicotine dependence, unspecified, uncomplicated; I25.10 Atherosclerotic heart disease of native coronary artery without angina pectoris; Z95.0 Presence of cardiac pacemaker; Z95.1 Presence of aortocoronary bypass graft; Z95.5 Presence of coronary angioplasty implant and graft; Z01.812 Encounter for preprocedural laboratory examination

== ENCOUNTER 2017-12-22 12:43 | Inpatient (IN) | payer MEDICARE, BC ==
[~2017-12-22] VITALS: Ht 185.4 cm; Wt 74.0 kg
[~2017-12-22 12:43] MED LIST changes: +FLOMAX0.4 MG PO; +HYDROCODON-ACE1 EAC7 PO
[2017-12-22 13:42] LABS: ALBUMIN 2.8 g/dL (3.4-5.0); ALKALINE PHOSPHATASE 48 U/L (46-116); ALT (SGPT) 25 U/L (10-68); CALC OSMOLALITY 295 mosm/kg (275-300); CALCIUM 8.4 mg/dL (8.5-10.1); CARBON DIOXIDE 26.1 mmol/L (21.0-32.0); CHLORIDE - SERUM 110 mmol/L (98-107); GLUCOSE 119 mg/dL (74-106); POTASSIUM - SERUM 4.5 mmol/L (3.5-5.1); PROTEIN - SERUM 6.1 g/dL (6.4-8.2); SODIUM 142 mmol/L (136-145); UREA NITROGEN 45 mg/dL (7-18); eGFR NON AFRICAN AMERICAN 76 mL/min (90-120)
[2017-12-22 13:51] LABS: CREATINE KINASE 63 UL (21-232); PRO BNP 212 pg/mL (0-450)
[2017-12-22 13:53] LABS: TROPONIN-I < 0.017 ng/mL (0.000-0.060)
[2017-12-22 14:24] LABS: BASOPHILS 0.2 % (0-2); EOSINOPHILS 0.9 % (0-7); HEMATOCRIT 26.7 % (42.0-54.0); HEMOGLOBIN 8.4 g/dL (13.5-17.5); IMMATURE GRANULOCYTES 0.4 % (0-5); LYMPHOCYTES 15.5 % (15-50); MCH 31.8 pg (26.0-34.0); MCHC 31.5 g/dL (31.0-37.0); MCV 101.1 fL (80.0-100.0); MEAN PLATELET VOLUME 9.4 fL (7.4-10.4); MONOCYTES 6.6 % (2-11); NEUTROPHILS 76.4 % (40-80); PLATELET COUNT 210 10x3/uL (130-400); RBC 2.64 10x6/uL (4.20-6.10); RDW 15.7 % (11.5-14.5)
[2017-12-22 22:04] VITALS: BP 123/49
[2017-12-22 22:17] LABS: BASOPHILS 0.1 % (0-2); EOSINOPHILS 1.4 % (0-7); HEMATOCRIT 24.7 % (42.0-54.0); HEMOGLOBIN 7.9 g/dL (13.5-17.5); IMMATURE GRANULOCYTES 0.2 % (0-5); LYMPHOCYTES 17.8 % (15-50); MCH 31.9 pg (26.0-34.0); MCV 99.6 fL (80.0-100.0); MEAN PLATELET VOLUME 9.4 fL (7.4-10.4); MONOCYTES 10.6 % (2-11); NEUTROPHILS 69.9 % (40-80); PLATELET COUNT 191 10x3/uL (130-400); RBC 2.48 10x6/uL (4.20-6.10); RDW 17.3 % (11.5-14.5); WBC 8.8 10x3/uL (4.8-10.8)
[2017-12-23] VITALS (17 sets, daily range): BP systolic 91–140; BP diastolic 35–77; BMI 21.1
[2017-12-23 06:18] LABS: BASOPHILS 0.2 % (0-2); EOSINOPHILS 1.8 % (0-7); IMMATURE GRANULOCYTES 0.4 % (0-5); LYMPHOCYTES 19.2 % (15-50); MCH 31.6 pg (26.0-34.0); MCHC 32.2 g/dL (31.0-37.0); MCV 98.3 fL (80.0-100.0); MEAN PLATELET VOLUME 9.3 fL (7.4-10.4); MONOCYTES 10.1 % (2-11); NEUTROPHILS 68.3 % (40-80); PLATELET COUNT 186 10x3/uL (130-400); RBC 2.34 10x6/uL (4.20-6.10); RDW 18.1 % (11.5-14.5); WBC 8.3 10x3/uL (4.8-10.8)
[2017-12-23 06:21] LABS: HEMOGLOBIN 7.4 g/dL (13.5-17.5)
[2017-12-23 06:27] LABS: APTT 25.6 SECONDS (22.8-39.4); INR 1.2 (0.85-1.17); PROTIME 14.8 SECONDS (11.6-15.0)
[2017-12-23 07:03] LABS: CALC OSMOLALITY 296 mosm/kg (275-300); CALCIUM 7.7 mg/dL (8.5-10.1); CARBON DIOXIDE 25.4 mmol/L (21.0-32.0); CHLORIDE - SERUM 111 mmol/L (98-107); CREATININE - SERUM 0.8 mg/dL (0.6-1.3); GLUCOSE 112 mg/dL (74-106); POTASSIUM - SERUM 4.1 mmol/L (3.5-5.1); SODIUM 143 mmol/L (136-145); THYROID STIMULATING HORMONE 3.45 uIU/mL (0.36-3.74); UREA NITROGEN 42 mg/dL (7-18); eGFR NON AFRICAN AMERICAN > 90 mL/min (90-120)
[2017-12-23 09:17] LABS: BASOPHILS 0.1 % (0-2); EOSINOPHILS 1.5 % (0-7); HEMATOCRIT 22.7 % (42.0-54.0); IMMATURE GRANULOCYTES 0.2 % (0-5); LYMPHOCYTES 18.4 % (15-50); MCH 32.2 pg (26.0-34.0); MCHC 32.2 g/dL (31.0-37.0); MEAN PLATELET VOLUME 9.5 fL (7.4-10.4); MONOCYTES 8.7 % (2-11); NEUTROPHILS 71.1 % (40-80); PLATELET COUNT 189 10x3/uL (130-400); RBC 2.27 10x6/uL (4.20-6.10); RDW 17.6 % (11.5-14.5); WBC 8.6 10x3/uL (4.8-10.8)
[2017-12-23 09:18] LABS: HEMOGLOBIN 7.3 g/dL (13.5-17.5)
[2017-12-23 12:56] LABS: HEMATOCRIT 25.9 % (42.0-54.0); HEMOGLOBIN 8.4 g/dL (13.5-17.5)
[2017-12-23 16:21] LABS: BASOPHILS 0.3 % (0-2); EOSINOPHILS 1.6 % (0-7); HEMATOCRIT 29.2 % (42.0-54.0); HEMOGLOBIN 9.7 g/dL (13.5-17.5); IMMATURE GRANULOCYTES 0.3 % (0-5); LYMPHOCYTES 20.7 % (15-50); MCH 32.3 pg (26.0-34.0); MCHC 33.2 g/dL (31.0-37.0); MCV 97.3 fL (80.0-100.0); MEAN PLATELET VOLUME 9.2 fL (7.4-10.4); MONOCYTES 10.1 % (2-11); PLATELET COUNT 170 10x3/uL (130-400); RDW 18.9 % (11.5-14.5); WBC 7.6 10x3/uL (4.8-10.8)
[2017-12-23 18:25] LABS: HEMATOCRIT 27.2 % (42.0-54.0); HEMOGLOBIN 8.8 g/dL (13.5-17.5)
[2017-12-23 23:18] LABS: HEMATOCRIT 26.3 % (42.0-54.0); HEMOGLOBIN 8.6 g/dL (13.5-17.5)
[2017-12-24] VITALS (14 sets, daily range): BP systolic 91–137; BP diastolic 40–98; Ht 185.4 cm; Wt 74.0 kg
[2017-12-24 03:47] LABS: BASOPHILS 0.1 % (0-2); EOSINOPHILS 2.2 % (0-7); HEMATOCRIT 29.9 % (42.0-54.0); HEMOGLOBIN 9.8 g/dL (13.5-17.5); IMMATURE GRANULOCYTES 0.1 % (0-5); LYMPHOCYTES 17.3 % (15-50); MCH 30.6 pg (26.0-34.0); MCHC 32.8 g/dL (31.0-37.0); MEAN PLATELET VOLUME 9.3 fL (7.4-10.4); MONOCYTES 9.2 % (2-11); NEUTROPHILS 71.1 % (40-80); PLATELET COUNT 170 10x3/uL (130-400); RDW 19.8 % (11.5-14.5); WBC 8.5 10x3/uL (4.8-10.8)
[2017-12-24 03:49] LABS: MCV 93.4 fL (80.0-100.0)
[2017-12-24 03:59] LABS: INR 1.05 (0.85-1.17); PROTIME 13.3 SECONDS (11.6-15.0)
[2017-12-24 04:02] LABS: CALC OSMOLALITY 292 mosm/kg (275-300); CALCIUM 7.6 mg/dL (8.5-10.1); CARBON DIOXIDE 26.1 mmol/L (21.0-32.0); CHLORIDE - SERUM 113 mmol/L (98-107); CREATININE - SERUM 0.7 mg/dL (0.6-1.3); GLUCOSE 95 mg/dL (74-106); POTASSIUM - SERUM 4.2 mmol/L (3.5-5.1); SODIUM 146 mmol/L (136-145); UREA NITROGEN 19 mg/dL (7-18); eGFR NON AFRICAN AMERICAN > 90 mL/min (90-120)
[2017-12-24 12:03] LABS: HEMATOCRIT 31.1 % (42.0-54.0); HEMOGLOBIN 10.3 g/dL (13.5-17.5)
[2017-12-24 18:35] LABS: HEMATOCRIT 33.1 % (42.0-54.0); HEMOGLOBIN 10.7 g/dL (13.5-17.5)
[2017-12-25 03:30] VITALS: BP 123/56
[2017-12-25 04:37] LABS: BASOPHILS 0.1 % (0-2); EOSINOPHILS 3.6 % (0-7); HEMATOCRIT 29.7 % (42.0-54.0); HEMOGLOBIN 9.7 g/dL (13.5-17.5); IMMATURE GRANULOCYTES 0.1 % (0-5); LYMPHOCYTES 17.3 % (15-50); MCH 30.5 pg (26.0-34.0); MCHC 32.7 g/dL (31.0-37.0); MCV 93.4 fL (80.0-100.0); MEAN PLATELET VOLUME 8.8 fL (7.4-10.4); MONOCYTES 10.9 % (2-11); PLATELET COUNT 177 10x3/uL (130-400); RBC 3.18 10x6/uL (4.20-6.10); RDW 19.3 % (11.5-14.5); WBC 7.3 10x3/uL (4.8-10.8)
[2017-12-25 05:18] LABS: CALCIUM 8.1 mg/dL (8.5-10.1); CARBON DIOXIDE 27.2 mmol/L (21.0-32.0); CHLORIDE - SERUM 114 mmol/L (98-107); GLUCOSE 105 mg/dL (74-106); POTASSIUM - SERUM 4.2 mmol/L (3.5-5.1); SODIUM 147 mmol/L (136-145); eGFR NON AFRICAN AMERICAN 85 mL/min (90-120)
[2017-12-25 05:23] LABS: CALC OSMOLALITY 292 mosm/kg (275-300); CREATININE - SERUM 0.9 mg/dL (0.6-1.3); UREA NITROGEN 14 mg/dL (7-18)
[2017-12-25] MEDS ORDERED: PROTONIX40 MG PO (08:38)
[2017-12-25 09:01] VITALS: BP 145/57
[2017-12-25 09:16] LABS: FOLATE (FOLIC ACID) - SERUM 8.6 ng/mL (>3.0)
== END 2017-12-25 10:54 | disposition home or self-care (01) | DRG 378 ==
LOC: D.ER 12:43 → D.EDHOLD 15:12 → D.ICU 15:12 → D.MS 15:31 → D.ICU 12-23 11:29 → D.MS 12-24 14:50
PROVIDERS: Family Medicine; Internal Medicine Gastroenterology
PROC: 3E0G8GC Introduction of Other Therapeutic Substance into Upper GI, Via Natural or Artificial Opening Endoscopic (ICD-10-PCS; 2017-12-23)
PROC: 0DD78ZX Extraction of Stomach, Pylorus, Via Natural or Artificial Opening Endoscopic, Diagnostic (ICD-10-PCS; 2017-12-23)
PROC: 0W3P8ZZ Control Bleeding in Gastrointestinal Tract, Via Natural or Artificial Opening Endoscopic (ICD-10-PCS; principal; 2017-12-23 08:00)
DX: K26.4 Chronic or unspecified duodenal ulcer with hemorrhage (principal); D62 Acute posthemorrhagic anemia; I25.10 Atherosclerotic heart disease of native coronary artery without angina pectoris; K44.9 Diaphragmatic hernia without obstruction or gangrene; K29.60 Other gastritis without bleeding